=== PATIENT | female | born 1985 | race African-American/Black ===

== ENCOUNTER → 2021-12-12 | Day surgery (SDC) | payer OTHER | LOC: CSHSDC/OP 14:39 | PROVIDERS: ATTEND Obstetrics & Gynecology | DX: Z29.13 Encounter for prophylactic Rho(D) immune globulin (principal); Z68.35 Body mass index [BMI] 35.0-35.9, adult ==

== ENCOUNTER 2022-01-02 09:45 | Outpatient (CLI) | payer OTHER | END 2022-01-02 09:46 | disposition home or self-care (01) | LOC: CSHLAB 09:45 | PROVIDERS: ATTEND Obstetrics & Gynecology | DX: Z20.822 Contact with and (suspected) exposure to COVID-19 (principal) | CPT/HCPCS: 87811 ==

== ENCOUNTER 2022-01-06 06:00 | Inpatient (IN) | payer OTHER ==
[~2022-01-06 06:00] MED LIST: Acetaminophen 500 MG TAB PO PRN; Butorphanol Tartrate 1 MG/ML VIAL SLOW IVP PRN; Carboprost 250 MCG/ML AMP IM PRN; Diphenoxylate HCl/Atropine Tablet PO PRN; HYDROcodone/Acetaminophen 5/325 mg Tablet PO PRN; Ibuprofen 800 MG TAB PO PRN; Lidocaine 1% (PF) 30 ML VIAL SC PRN; Methylergonovine 0.2 MG/ML VIAL IM PRN; Misoprostol 200 MCG TAB PR PRN; NS w/ Oxytocin 30 units 500 ML IV SCH; Ondansetron PF 4 MG/2 ML Vial IVP PRN; Promethazine HCl 25 MG/ML VIAL IM PRN; hydrALAZINE 20 MG/ML VIAL SLOW IVP PRN
[2022-01-06] MEDS: Lactated Ringer's 1,000 ML IV SCH ×2 (07:33→13:32)
[2022-01-06 08:18] VITALS: BMI 30.5
[2022-01-06 08:21] LABS: Hemoglobin 11.8 g/dL (12.0-15.5); Mean Corpuscular HGB CONC 34.7 g/dL (32.0-36.0); Mean Corpuscular Hemoglobin 30.7 pg (27.0-33.0); Mean Corpuscular Volume 88.5 fl (81.6-98.3); Mean Platelet Volume 11.7 fl (7.4-10.4); Platelet Count 163 10x3/uL (150-450); RBC Distribution Width 13.7 % (11.5-14.5); Red Blood Cell (RBC) Count 3.84 10x6/uL (3.90-5.03); White Blood Cell (WBC) Count 7.4 10x3/uL (3.5-10.5)
[2022-01-06 08:49] LABS: Hep B Surf Ag Non-Reactive S/CO (NonReactive); Syphilis Antibody Nonreactive (Nonreactive); Syphilis Antibody Index 0.03 S/CO (<1.00 Non-Reactive)
[2022-01-06 09:07] LABS: HIV (1/2) Antibody/Antigen Non-Reactive (NonReactive); HIV 1/2 INDEX 0.08 S/CO (<1.00)
[2022-01-06 09:09] LABS: HBSAg Index 0.17 S/CO (0-0.99)
[2022-01-06] MEDS ORDERED: Fentanyl 2 mcg/Bup 0.1% Cadd 100 ML ONE (12:58)
[2022-01-06] MEDS: Fentanyl 2 mcg/Bupivacaine 0.1% Cassette 100 ML EPIDURAL SCH ×2 (13:30→19:05)
[2022-01-06] MEDS ORDERED: diphenhydrAMINE 50 MG/ML VIAL IVP PRN (13:43)
[2022-01-06] MEDS ORDERED: Acetaminophen 325 MG TAB PO PRN (13:43)
[2022-01-06] MEDS ORDERED: Lactated Ringer's 500 ML IV PRN (13:43)
[2022-01-06] MEDS ORDERED: Moisturizing Cream (Eucerin) 113 GM JAR TOP PRN (13:43)
[2022-01-06] MEDS ORDERED: Ondansetron PF 4 MG/2 ML Vial IVP PRN (13:43)
[2022-01-06] MEDS ORDERED: Naloxone HCl 0.4 mg/ml Vial IVP PRN ×2 (13:43)
[2022-01-06] MEDS ORDERED: Promethazine HCl 25 MG/ML VIAL IM PRN (13:43)
[2022-01-06] MEDS ORDERED: ePHEDrine Sulfate 50 MG/10 ML VIAL SLOW IVP PRN (13:43)
[2022-01-06] MEDS ORDERED: Communication Order-Pharmacy FS SCH (13:45)
[2022-01-07] MEDS ORDERED: Measles/Mumps/Rubella 10 MCG/0.5 ML VIAL SC ONE (02:37)
[2022-01-07] MEDS ORDERED: Zolpidem Tartrate 5 MG TAB PO PRN (02:37)
[2022-01-07] MEDS ORDERED: Misoprostol 200 MCG TAB VAG PRN (02:37)
[2022-01-07] MEDS ORDERED: Varicella virus, LIVE 0.5 ML VIAL SC ONE (02:37)
[2022-01-07] MEDS ORDERED: Boostrix 0.5 ML (Tdap) VIAL IM ONE (02:37)
[2022-01-07] MEDS ORDERED: Lanolin Ointment 7 GM TUBE TOP PRN (02:37)
[2022-01-07] MEDS ORDERED: Benzocaine-Menthol 82.5 ML CAN TOP PRN (02:37)
[2022-01-07] MEDS ORDERED: diphenhydrAMINE 25 MG CAP PO PRN (02:37)
[2022-01-07] MEDS ORDERED: Milk Of Magnesia 30 ML UDCUP PO PRN (02:37)
[2022-01-07] MEDS ORDERED: Ondansetron PF 4 MG/2 ML Vial IVP PRN (02:37)
[2022-01-07] MEDS ORDERED: Preparation H Ointment 28 GM TUBE PR PRN (02:37)
[2022-01-07] MEDS ORDERED: hydrALAZINE 20 MG/ML VIAL SLOW IVP PRN (02:37)
[2022-01-07] MEDS ORDERED: Promethazine HCl 25 MG/ML VIAL IM PRN (02:37)
[2022-01-07] MEDS ORDERED: Methylergonovine 0.2 MG/ML VIAL IM PRN (02:37)
[2022-01-07] MEDS ORDERED: Bisacodyl 10 MG SUPP PR PRN (02:37)
[2022-01-07] MEDS ORDERED: Docusate 100 MG CAP PO SCH (02:45)
[2022-01-07] MEDS ORDERED: NS w/ Oxytocin 30 units 500 ML IV SCH (02:45)
[2022-01-07] MEDS: Ibuprofen 800 MG TAB PO SCH ×3 (04:33→20:11)
[2022-01-07 05:27] LABS: Mean Corpuscular HGB CONC 34.9 g/dL (32.0-36.0); Mean Corpuscular Volume 88.7 fl (81.6-98.3); Mean Platelet Volume 11.9 fl (7.4-10.4); Platelet Count 164 10x3/uL (150-450); RBC Distribution Width 13.3 % (11.5-14.5); Red Blood Cell (RBC) Count 3.55 10x6/uL (3.90-5.03); White Blood Cell (WBC) Count 10.3 10x3/uL (3.5-10.5)
[2022-01-07] MEDS: Docusate 100 MG CAP PO SCH ×2 (09:04→20:11)
[2022-01-07] MEDS: Prenatal Vitamin 1 TAB PO SCH (09:11)
[2022-01-07] MEDS: HYDROcodone/Acetaminophen 5/325 mg Tablet PO PRN (09:11)
[2022-01-07] MEDS: Ferrous Sulfate 325 MG TAB PO SCH (09:14)
[2022-01-08] MEDS: HYDROcodone/Acetaminophen 5/325 mg Tablet PO PRN ×2 (00:37→12:28)
[2022-01-08 07:25] VITALS: BP 115/72; TEMP 98.2
[2022-01-08] MEDS: Ibuprofen 800 MG TAB PO SCH (07:30)
[2022-01-08] MEDS: Ferrous Sulfate 325 MG TAB PO SCH (07:30)
[2022-01-08] MEDS: Prenatal Vitamin 1 TAB PO SCH (08:08)
[2022-01-08] MEDS: Docusate 100 MG CAP PO SCH (08:08)
[2022-01-08] MEDS: Lactated Ringer's 1,000 ML IV SCH (10:43)
== END 2022-01-08 12:40 | disposition home or self-care (01) | DRG 806 ==
LOC: CSHLD 07:09 → CSHPP 21:50
PROVIDERS: ADMIT Obstetrics & Gynecology; ATTEND Obstetrics & Gynecology
PROC: 10E0XZZ Delivery of Products of Conception, External Approach (ICD-10-PCS; principal; 2022-01-06)
PROC: 3E0334Z Introduction of Serum, Toxoid and Vaccine into Peripheral Vein, Percutaneous Approach (ICD-10-PCS; 2022-01-06)
DX: O24.425 Gestational diabetes mellitus in childbirth, controlled by oral hypoglycemic drugs (principal); O98.52 Other viral diseases complicating childbirth; Z37.0 Single live birth; Z3A.38 38 weeks gestation of pregnancy; Z79.84 Long term (current) use of oral hypoglycemic drugs; Z79.899 Other long term (current) drug therapy; B00.9 Herpesviral infection, unspecified; O26.893 Other specified pregnancy related conditions, third trimester; Z67.41 Type O blood, Rh negative
CPT/HCPCS: 36415; 51702; 85027; 85461; 86780; 86850; 86870; 86900; 86901; 87340; 87389; 90384; 96372; J2405; J2590; J7120